=== PATIENT | female | born 1985 | race Caucasian/White ===

== ENCOUNTER 2018-09-04 12:34 | Emergency (ER) | payer OTHER ==
--- NOTE | 2018-09-04 13:58 | RAD REPORT ---
EXAM DESCRIPTION: CT - Head Brain Wo Cont - 09/04/2018 1:51 pm CLINICAL HISTORY: HEADACHE COMPARISON: No comparisons TECHNIQUE: All CT scans are performed using dose optimization technique as appropriate and may inclu de automated exposure control or mA/KV adjustment according to patient size. FINDINGS: No intracranial hemorrhage, hydrocephalus or extra-axial fluid collection.No areas of brai n edema or evidence of midline shift. The paranasal sinuses and mastoids are clear. The calvarium is intact. IMPRESSION: No acute intracranial abnormality.
[2018-09-04 14:28] LABS: Absolute Monocytes 0.4 K/uL (0.1-1.3); Absolute Neutrophil 5.1 K/uL (1.8-8.0); Basophils % 0.7 % (0-1.3); Hematocrit 46.1 % (36.0-45.0); Lymphocytes % 25.9 % (15.3-44.8); MCH 31.1 pg (27.0-35.0); MCV 90.7 fL (80-100); MPV 8.2 fL (7.6-11.3); Monocytes % 5.1 % (3.3-12.3); RBC Red Blood Cell Count 5.09 M/uL (3.86-4.86)
[2018-09-04 14:32] LABS: Protime INR 1.04
[2018-09-04 14:49] LABS: ALT/SGPT 65 U/L (12-78); AST/SGOT 35 U/L (15-37); Albumin 4.5 g/dL (3.4-5.0); Alkaline Phosphatase 115 U/L (45-117); BUN Blood Urea Nitrogen 13 mg/dL (7-18); Bicarbonate 28 mmol/L (21-32); Bilirubin Direct 0.3 mg/dL (0-0.2); Glucose Level 89 mg/dL (74-106); Magnesium 2.4 mg/dL (1.8-2.4); NT PRO-BNP 22 pg/mL (<125); Potassium 3.5 mmol/L (3.5-5.1); Protein, Total 8.7 g/dL (6.4-8.2); Sodium Level 138 mmol/L (136-145); Troponin (Emerg Dept Use Only) < 0.02 ng/mL (0.0-0.045)
[2018-09-04] MEDS ORDERED: cloNIDine HCl 0.1 MG TAB ONE (15:17)
[2018-09-04] MEDS ORDERED: NA CHLORIDE 0.9% 1,000 ML ONE (15:17)
--- NOTE | 2018-09-04 16:37 | EDPHYS ---
Physician Documentation [facility] Name: Rebekah Davila Age: 32 yrs Sex: Female : 1985 Arrival Date: 09/04/2018 Time: 12:36 Bed 13 Private MD: Michael Hebert ED Physician Mateo Menezes HPI: 09/04 16:32 This 32 yrs old Female presents to ER via Ambulatory with complaints of High kb Blood Pressure, Headache. 16:32 The patient has elevated blood pressure and discovered this at home, with a home kb device. Onset: The symptoms/episode began/occurred 3 day(s) ago. Associated signs and symptoms: Pertinent positives: headache, Pertinent negatives: chest pain, dizziness, dyspnea, lightheadedness, nausea, visual changes, vomiting, weakness. Severity of symptoms: At its worst the blood pressure was moderate, in the emergency department the blood pressure is unchanged. The patient has not experienced similar symptoms in the past. The patient has not recently seen a physician. 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 - Social history:: Smoking status: Patient/guardian denies using tobacco. - Ebola Screening: : Patient denies travel to an Ebola-affected area in the 21 days before illness onset. ROS: 16:32 Constitutional: Negative for fever, chills, and weight loss, Cardiovascular: Negative kb for chest pain, palpitations, and edema, Respiratory: Negative for shortness of breath, cough, wheezing, and pleuritic chest pain, Abdomen/GI: Negative for abdominal pain, nausea, vomiting, diarrhea, and constipation, Back: Negative for injury and pain, MS/Extremity: Negative for injury and deformity, Skin: Negative for injury, rash, and discoloration. 16:32 Neuro: Positive for headache. Exam: 16:32 Constitutional: This is a well developed, well nourished patient who is awake, alert, kb and in no acute distress. Head/Face: Normocephalic, atraumatic. Chest/axilla: Normal chest wall appearance and motion. Nontender with no deformity. No lesions are appreciated. Cardiovascular: Regular rate and rhythm with a normal S1 and S2. No gallops, murmurs, or rubs. Normal PMI, no JVD. No pulse deficits. Respiratory: Lungs have equal breath sounds bilaterally, clear to auscultation and percussion. No rales, rhonchi or wheezes noted. No increased work of breathing, no retractions or nasal flaring. Abdomen/GI: Soft, non-tender, with normal bowel sounds. No distension or tympany. No guarding or rebound. No evidence of tenderness throughout. Skin: Warm, dry with normal turgor. Normal color with no rashes, no lesions, and no evidence of cellulitis. MS/ Extremity: Pulses equal, no cyanosis. Neurovascular intact. Full, normal range of motion. Neuro: Awake and alert, GCS 15, oriented to person, place, time, and situation. Cranial nerves II-XII grossly intact. Motor strength 5/5 in all extremities. Sensory grossly intact. Cerebellar exam normal. Normal gait. Vital Signs: 13:00 BP 163 / 112; Pulse 105; Resp 20; Temp 98.5; Pulse Ox 99% on R/A; Weight 74.84 kg (R); aj1 Height 5 ft. 2 in. (157.48 cm) (R); Pain 7/10; 13:30 BP 149 / 97; Pulse 90; Resp 18; Pulse Ox 99% on R/A; ph 14:42 BP 132 / 103; Pulse 93; Resp 16; Pulse Ox 98% on R/A; ph 15:29 BP 141 / 107; Pulse 82; Resp 16; Pulse Ox 100% on R/A; ph 16:18 BP 130 / 87; Pulse 79; Resp 18; Pulse Ox 99% on R/A; ph 17:05 BP 116 / 74; Pulse 78; Resp 18; Temp 98.3; Pulse Ox 99% on R/A; ph 13:00 Body Mass Index 30.18 (74.84 kg, 157.48 cm) aj MDM: 13:23 Patient medically screened. kb 16:35 Data reviewed: vital signs, nurses notes. Data interpreted: Pulse oximetry: on room air kb is 99 %. Interpretation: normal. Counseling: I had a detailed discussion with the patient and/or guardian regarding: the historical points, exam findings, and any diagnostic results supporting the discharge/admit diagnosis, lab results, radiology results, the need for outpatient follow up, a family practitioner, to return to the emergency department if symptoms worsen or persist or if there are any questions or concerns that arise at home. ED course: Headache resolved once BP came down. Pt educated to keep blood pressure log and take to Dr Hebert for treatment of hypertension. . 09/04 13:29 Order name: Basic Metabolic Panel; Complete Time: 14:54 kb 09/04 13:29 Order name: CBC with Diff; Complete Time: 14:36 kb 09/04 13:29 Order name: LFT's; Complete Time: 14:54 kb 09/04 13:29 Order name: Magnesium; Complete Time: 14:54 kb 09/04 13:29 Order name: NT PRO-BNP; Complete Time: 14:54 kb 09/04 13:29 Order name: PT-INR; Complete Time: 14:54 kb 09/04 13:29 Order name: Troponin (emerg Dept Use Only); Complete Time: 14:54 kb 09/04 13:29 Order name: EKG; Complete Time: 13:30 kb 09/04 13:29 Order name: Cardiac monitoring; Complete Time: 16:20 kb 09/04 13:29 Order name: EKG - Nurse/Tech; Complete Time: 16:20 kb 09/04 13:29 Order name: IV Saline Lock; Complete Time: 16:20 kb 09/04 13:29 Order name: CT Head Brain wo Cont; Complete Time: 14:00 kb 09/04 13:29 Order name: Labs collected and sent; Complete Time: 16:20 kb 09/04 13:29 Order name: O2 Per Protocol; Complete Time: 16:20 kb 09/04 13:29 Order name: O2 Sat Monitoring; Complete Time: 16:20 kb 09/04 14:37 Order name: Recheck Vital Signs: every 30 minutes; Complete Time: 14:44 kb Administered Medications: 15:20 Drug: NS 0.9% 1000 ml Route: IV; Rate: 1000 ml; Site: left antecubital; ph 17:06 Follow up: Response: No adverse reaction; IV Status: Completed infusion ph 15:20 Drug: cloNIDine 0.1 mg Route: PO; ph 17:06 Follow up: Response: No adverse reaction; Blood pressure is lowered ph Disposition: 18:24 Co-signature as Attending Physician, Mateo Menezes MD. Disposition: 09/04/18 16:37 Discharged to Home. Impression: Essential (primary) hypertension. - Condition is Stable. - Discharge Instructions: Hypertension, [id number]. - Medication Reconciliation Form, Thank You Letter, Antibiotic Education, Prescription Opioid Use, Work release form form. - Follow up: Emergency Department; When: As needed; Reason: Worsening of condition. Follow up: Michael Hebert; When: 2 - 3 days; Reason: Recheck today's complaints, Continuance of care, Re-evaluation by your physician. Signatures: Dispatcher [employer] EDMS Kalina Davila, FARM MACHINERY ERECTOR-C FARM MACHINERY ERECTOR-Ckb Racquel Goff RN RN aj1 Isabell Solitario RN RN ph Riri, MD IZABELA Galindo Corrections: (The following items were deleted from the chart) 17:07 16:37 09/04/2018 16:37 Discharged to Home. Impression: Essential (primary) ph hypertension. Condition is Stable. Forms are Medication Reconciliation Form, Thank You Letter, Antibiotic Education, Prescription Opioid Use. Follow up: Emergency Department; When: As needed; Reason: Worsening of condition. Follow up: Michael Hebert; When: 2 - 3 days; Reason: Recheck today's complaints, Continuance of care, Re-evaluation by your physician. kb
--- NOTE | 2018-09-04 16:37 | ER ---
Nurse's Notes [facility] Name: Rebekah Davila Age: 32 yrs Sex: Female : 1985 Arrival Date: 09/04/2018 Time: 12:36 Bed 13 Private MD: Michael Hebert Diagnosis: Essential (primary) hypertension Presentation: 09/04 12:58 Presenting complaint: Patient states: I've been having a severe headache for a few days aj1 last night. Today my headache was worse so I went to the school nurse and when she checked it it was 190/105, so she told me to come to the emergency room.". Transition of care: patient was not received from another setting of care. Onset of symptoms was September 04, 2018 at 12:00. Risk Assessment: Do you want to hurt yourself or someone else? Patient reports no desire to harm self or others. Initial Sepsis Screen: Does the patient meet any 2 criteria? HR > 90 bpm. No. Patient's initial sepsis screen is negative. Does the patient have a suspected source of infection? No. Patient's initial sepsis screen is negative. Care prior to arrival: None. 12:58 Method Of Arrival: Ambulatory aj 12:58 Acuity: NAWAF 3 aj1 Triage Assessment: 13:00 Headache History: The patient has had previous headaches and this one is similar to aj1 previous episodes. General: Appears in no apparent distress. uncomfortable, Behavior is calm, cooperative, appropriate for age. Pain: Complains of pain in right eye and left eye Pain currently is 7 out of 10 on a pain scale. Pain began 1 hour ago. Also complains of nausea. Neuro: Level of Consciousness is awake, alert, obeys commands, Oriented to person, place, time, situation. Cardiovascular: Patient's skin is warm and dry. Respiratory: Airway is patent Respiratory effort is even, unlabored, Respiratory pattern is regular, symmetrical. 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 - Social history:: Smoking status: Patient/guardian denies using tobacco. - Ebola Screening: : Patient denies travel to an Ebola-affected area in the 21 days before illness onset. Screenin:42 Abuse screen: Denies threats or abuse. Denies injuries from another. Nutritional ph screening: No deficits noted. Tuberculosis screening: Fall Risk None identified. Assessment: 13:30 General: Appears in no apparent distress. comfortable, Behavior is calm, cooperative, ph appropriate for age, Denies fever, feeling ill. Pain: Complains of pain in head. Neuro: Level of Consciousness is awake, alert, obeys commands, Oriented to person, place, time, situation, Reports blurred vision dizziness, headache frontal area, paresthesias in right cheek, right ear and right adventism. Cardiovascular: Reports lightheadedness, Denies chest pain, nausea, shortness of breath, vomiting, Capillary refill < 3 seconds in bilateral fingers Patient's skin is warm and dry. Respiratory: Airway is patent Respiratory effort is even, unlabored. GI: No signs and/or symptoms were reported involving the gastrointestinal system. Derm: Skin is intact, is healthy with good turgor, Skin is pink, warm \\T\\ dry. Musculoskeletal: Circulation, motion, and sensation intact. Range of motion: intact in all extremities. 15:00 Reassessment: Patient appears in no apparent distress at this time. Patient and/or ph family updated on plan of care and expected duration. Pain level reassessed. Patient is alert, oriented x 3, equal unlabored respirations, skin warm/dry/pink. 16:18 Reassessment: Patient appears in no apparent distress at this time. Patient and/or ph family updated on plan of care and expected duration. Pain level reassessed. Patient is alert, oriented x 3, equal unlabored respirations, skin warm/dry/pink. Pt sitting up in bed eating sandwich, tolerating well, BP decreased to 130/87, pt states, " My headache is starting to go away too." Family at bedside. 17:04 Reassessment: Patient appears in no apparent distress at this time. Patient and/or ph family updated on plan of care and expected duration. Pain level reassessed. Patient is alert, oriented x 3, equal unlabored respirations, skin warm/dry/pink. Pt instructed to follow-up w/ PCP and d/c home. Vital Signs: 13:00 BP 163 / 112; Pulse 105; Resp 20; Temp 98.5; Pulse Ox 99% on R/A; Weight 74.84 kg (R); aj1 Height 5 ft. 2 in. (157.48 cm) (R); Pain 7/10; 13:30 BP 149 / 97; Pulse 90; Resp 18; Pulse Ox 99% on R/A; ph 14:42 BP 132 / 103; Pulse 93; Resp 16; Pulse Ox 98% on R/A; ph 15:29 BP 141 / 107; Pulse 82; Resp 16; Pulse Ox 100% on R/A; ph 16:18 BP 130 / 87; Pulse 79; Resp 18; Pulse Ox 99% on R/A; ph 17:05 BP 116 / 74; Pulse 78; Resp 18; Temp 98.3; Pulse Ox 99% on R/A; ph 13:00 Body Mass Index 30.18 (74.84 kg, 157.48 cm) aj1 ED Course: 12:36 Patient arrived in ED. as 12:36 Michael Hebert is Private Physician. as 12:59 Triage completed. aj1 13:00 Arm band placed on Patient placed in waiting room, Patient notified of wait time. aj1 13:19 Isabell Solitario, RN is Primary Nurse. ph 13:23 [facility]C [facility]. kb 13:23 Mateo Menezes MD is Attending Physician. kb 13:23 Patient has correct armband on for positive identification. Bed in low position. Call ph light in reach. Side rails up X 1. Pulse ox on. NIBP on. Warm blanket given. 13:[address] via wheelchair. kw1 13:51 CT Head Brain wo Cont In Process Unspecified. EDMS 14:00 CT completed. Patient tolerated procedure well. Patient moved back from CT. kw1 14:09 EKG done, by technical support internship. reviewed by Kalina SONG. sm3 14:42 Initial lab(s) drawn, by me, sent to lab. Missed attempt(s): 22 gauge in right ph antecubital area. Bleeding controlled, band aid applied, catheter tip intact. 15:04 Inserted saline lock: 20 gauge in left antecubital area, using aseptic technique. sv Flushed left antecubital with 5 ml normal saline. 16:36 Michael Hebert is Referral Physician. kb 17:05 No provider procedures requiring assistance completed. IV discontinued, intact, ph bleeding controlled, No redness/swelling at site. Pressure dressing applied. Administered Medications: 15:20 Drug: NS 0.9% 1000 ml Route: IV; Rate: 1000 ml; Site: left antecubital; ph 17:06 Follow up: Response: No adverse reaction; IV Status: Completed infusion ph 15:20 Drug: cloNIDine 0.1 mg Route: PO; ph 17:06 Follow up: Response: No adverse reaction; Blood pressure is lowered ph Outcome: 16:37 Discharge ordered by MD. kb 17:07 Patient left the ED. ph 17:07 Discharged to home ambulatory, with family. ph 17:07 Condition: improved 17:07 Discharge instructions given to patient, Instructed on discharge instructions, follow up and referral plans. Demonstrated understanding of instructions, follow-up care. Signatures: Dispatcher [employer] EDKalina Daniels, QUALITATIVE RESEARCHER-C QUALITATIVE RESEARCHER-CkRacquel Chávez RN RN aj1 Meera Reveles RN RN sv Martinez, Amelia as Hall, Patricia, RN RN Danyelle Jimenez 1 Ginger Live 3
--- NOTE | 2018-09-04 17:38 | EKG ---
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
== END 2018-09-04 17:07 | disposition home or self-care (01) ==
LOC: ER 12:34
DX: I10 Essential (primary) hypertension (principal); E03.9 Hypothyroidism, unspecified
CPT/HCPCS: 36415; 70450; 80048; 80076; 83735; 83880; 84484; 85025; 85610; 93005; 96360; 96361; 99284; J7030

== ENCOUNTER 2018-09-05 17:57 | Emergency (ER) | payer OTHER ==
[2018-09-05] MEDS ORDERED: METOCLOPRAMIDE 10 MG/2mL INJ ONE ×2 (20:43)
[2018-09-05] MEDS ORDERED: ONDANSETRON 4 MG/2 ML VIAL ONE (20:44)
[2018-09-05] MEDS ORDERED: NA CHLORIDE 0.9% 100 ML IV ONE (20:45)
[2018-09-05 20:46] LABS: Absolute Lymphocytes (CBC) 1.7 K/uL (0.7-4.9); Absolute Monocytes 0.5 K/uL (0.1-1.3); Absolute Neutrophil 8.6 K/uL (1.8-8.0); Basophils % 0.3 % (0-1.3); Eosinophils % 0.6 % (0-4.4); Hematocrit 43.5 % (36.0-45.0); Lymphocytes % 15.9 % (15.3-44.8); MCV 91.6 fL (80-100); MPV 8.3 fL (7.6-11.3); Monocytes % 4.4 % (3.3-12.3); RBC Red Blood Cell Count 4.75 M/uL (3.86-4.86)
[2018-09-05] MEDS ORDERED: DEXAMETHASONE 10 MG/ML VIAL ONE (20:48)
[2018-09-05 20:53] LABS: Potassium 3.8 mmol/L (3.5-5.1)
[2018-09-05 21:12] LABS: Urine Blood NEGATIVE (NEG); Urine Glucose NEGATIVE (NEG); Urine Protein NEGATIVE (NEG)
--- NOTE | 2018-09-05 21:24 | RAD REPORT ---
EXAM DESCRIPTION: CT - Head angio - 09/05/2018 9:09 pm CLINICAL HISTORY: Headache TECHNIQUE: Axial 5 millimeter thick imaging of the head was performed. During dynamic enhancement us ing nonionic IV contrast,, axial 1 millimeter thick images of the head were obtained. Sagittal and co leia reformatted images were generated and reviewed. All CT scans are performed using dose optimization technique as appropriate and may include automated exposure control or mA/KV adjustment according to patient size. COMPARISON: CT head September 04 FINDINGS: No intracranial hemorrhage. No mass, edema or other acute intracranial finding. No new br ain parenchymal finding since September 04. Contrast imaging shows no aneurysm or vascular malformation. No vasculitis or other diffuse vascular process seen. No named branch occlusion identifiable. Major venous sinuses are patent. IMPRESSION: CT angio head examination shows no significant or suspicious finding.
--- NOTE | 2018-09-05 21:27 | RAD REPORT ---
EXAM DESCRIPTION: CT - Neck Angio - 09/05/2018 9:11 pm CLINICAL HISTORY: Headache, neck pain TECHNIQUE: During dynamic enhancement using nonionic IV contrast, axial 2 millimeter thick images we re obtained. Sagittal and coronal reformatted images were generated and reviewed. All CT scans are performed using dose optimization technique as appropriate and may include automated exposure control or mA/KV adjustment according to patient size. COMPARISON: None FINDINGS: Aortic arch is 3 vessel. No origin stenoses identified. No vertebral artery origins steno sis. Vertebral arteries are codominant. No dissection, stenosis or significant finding. Basilar artery is unremarkable. Bilateral common carotid artery show no suspicious findings. Internal and external mckeon tid artery's without suspicious finding. No dissection. No vasculitis findings. No jugular vein abnor mality. No suspicious soft tissue neck finding. Postsurgical changes are noted at the C5-6 disc level. Prominent posterior endplate spurring changes are present. IMPRESSION: CT angio neck imaging shows no vascular abnormalities. No suspicious soft tissue mass identifiable. 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 This is a surgically fused level.
[2018-09-05] MEDS ORDERED: NA CHLORIDE 0.9% 2,000 ML ONE (22:56)
[2018-09-05 23:05] LABS: CSF Glucose 62 mg/dL (40-70)
[2018-09-05 23:35] LABS: Appearance CLEAR (CLEAR); Body Fluid Source CSF; Color of fluid Colorless (COLORLESS); Fluid Total Volume 5 ml
[2018-09-05 23:36] LABS: Body Fluid WBC 0 /mm^3
[2018-09-05 23:40] LABS: Appearance CLEAR (CLEAR); Body Fluid Source CSF; Body Fluid WBC 0 /mm^3; Color of fluid Colorless (COLORLESS)
--- NOTE | 2018-09-06 00:11 | ER ---
Nurse's Notes [facility] Name: Rebekah Davila Age: 32 yrs Sex: Female : 1985 Arrival Date: 09/05/2018 Time: 18:00 Bed 6 Private MD: Michael Hebert Diagnosis: Headache;Elevated blood-pressure reading, without diagnosis of hypertension Presentation: 09/05 18:00 Presenting complaint: Patient states: HTN, headache is worse today, c/o vomiting. Was sv seen here yesterday. Transition of care: patient was not received from another setting of care. Onset of symptoms was September 05, 2018. Care prior to arrival: None. 18:00 Method Of Arrival: Ambulatory sv 18:00 Acuity: NAWAF 3 sv 21:37 Risk Assessment: Do you want to hurt yourself or someone else? Patient reports no tl2 desire to harm self or others. Initial Sepsis Screen: Does the patient meet any 2 criteria? No. Patient's initial sepsis screen is negative. Does the patient have a suspected source of infection? No. Patient's initial sepsis screen is negative. Triage Assessment: 18:00 General: Appears uncomfortable, Behavior is calm, cooperative, appropriate for age. sv Pain: Complains of pain in face Pain currently is 9 out of 10 on a pain scale. Neuro: Level of Consciousness is awake, alert, obeys commands, Oriented to person, place, time, situation, Moves all extremities. Full function Gait is steady, Speech is normal. Neuro: Reports headache photophobia. Respiratory: Respiratory effort is even, unlabored, Respiratory pattern is regular, symmetrical. Derm: Skin is pink, warm \T\ dry. 21:37 Pain: Also complains of. tl2 Historical: - Allergies: 18:01 No Known Allergies; sv - Home Meds: 21:38 [employer] [place] Thyroid Oral [Active]; tl2 - PMHx: 18:01 Hypothyroidism; sv - PSHx: 18:01 neck surgery; Cholecystectomy; sv - Immunization history:: Adult Immunizations up to date. - Ebola Screening: : No symptoms or risks identified at this time. - Social history:: Smoking status: unknown. Screenin:36 Abuse screen: Denies threats or abuse. Nutritional screening: No deficits noted. tl2 Tuberculosis screening: No symptoms or risk factors identified. Fall Risk None identified. Assessment: 19:50 General: Appears in no apparent distress. uncomfortable, Behavior is calm, cooperative, tl2 appropriate for age. Pain: Complains of pain in headache. Neuro: Level of Consciousness is awake, alert, obeys commands, Oriented to person, place, time, situation. Cardiovascular: Denies chest pain. Respiratory: Airway is patent Respiratory effort is even, unlabored, Respiratory pattern is regular, symmetrical. GI: No signs and/or symptoms were reported involving the gastrointestinal system. Derm: Skin is pink, warm \T\ dry. 21:36 Reassessment: Patient appears in no apparent distress at this time. Patient and/or tl2 family updated on plan of care and expected duration. Pain level reassessed. Patient is alert, oriented x 3, equal unlabored respirations, skin warm/dry/pink. Pt states headache pain is improving Patient states feeling better. 22:30 Reassessment: Patient appears in no apparent distress at this time. Patient and/or tl2 family updated on plan of care and expected duration. Pain level reassessed. Patient is alert, oriented x 3, equal unlabored respirations, skin warm/dry/pink. Patient states feeling better. 09/06 00:25 Reassessment: Patient appears in no apparent distress at this time. Patient and/or tl2 family updated on plan of care and expected duration. Pain level reassessed. Patient is alert, oriented x 3, equal unlabored respirations, skin warm/dry/pink. pt verbalized understanding of discharge instructions, need for follow up and prescription usage Patient states feeling better. Vital Signs: 09/05 18:01 BP 155 / 114; Pulse 89; Resp 19; Temp 98.3; Pulse Ox 98% ; Weight 74.84 kg; Height 5 sv ft. 2 in. (157.48 cm); Pain 9/10; 19:54 BP 166 / 111; Pulse 95; Resp 18; Pulse Ox 99% on R/A; mt 21:38 BP 126 / 85; Pulse 72; Resp 18; Pulse Ox 97% ; Pain 6/10; tl2 22:27 BP 113 / 77; Pulse 79; Resp 18; Pulse Ox 99% on R/A; mt 23:33 BP 119 / 80; Pulse 70; Resp 18; Pulse Ox 95% on R/A; tl2 18:01 Body Mass Index 30.18 (74.84 kg, 157.48 cm) sv ED Course: 18:00 Patient arrived in ED. as 18:00 Michael Hebert is Private Physician. as 18:01 Triage completed. sv 18:03 Arm band placed on. sv 19:51 Topher Sepulveda PA is PHCP. cp 19:51 Topher Prater MD is Attending Physician. cp 20:25 Inserted saline lock: 20 gauge in left antecubital area, using aseptic technique. Blood mt collected. 21:10 Head angio In Process Unspecified. EDMS 21:11 CT completed. Patient tolerated procedure well. Patient moved back from CT. nj 21:11 Neck Angio In Process Unspecified. EDMS 21:31 Barbara Avilez, JHON is Primary Nurse. tl2 21:36 Patient has correct armband on for positive identification. Bed in low position. Call tl2 light in reach. Side rails up X 1. Adult w/ patient. 22:11 Consent for a lumbar puncture explained by staff, explained by physician, signed by tl2 patient. 23:30 Assist provider with lumbar puncture: Set up LP tray. Performed by Topher FELIX CSF is tl2 clear. Sample collected. Sample sent to lab. Puncture site dressed with band aid, Procedure was successful. Patient tolerated well. 09/06 00:10 Kevin Arvizu MD is Referral Physician. cp 00:27 IV discontinued, intact, bleeding controlled, No redness/swelling at site. Pressure tl2 dressing applied. Administered Medications: 09/05 20:50 Drug: Reglan 20 mg Route: IVP; Site: left antecubital; tl2 21:34 Follow up: Response: No adverse reaction tl2 20:50 Drug: Zofran 4 mg Route: IVP; Site: left antecubital; tl2 09/06 00:31 Follow up: Response: No adverse reaction; Marked relief of symptoms tl1 09/05 21:34 Drug: Decadron - Dexamethasone 10 mg Route: IVP; Site: left antecubital; tl2 09/06 00:32 Follow up: Response: No adverse reaction; Marked relief of symptoms; Pain is decreased tl1 09/05 22:55 Drug: NS 0.9% 1000 ml Route: IV; Rate: 1 bolus; Site: left antecubital; tl1 09/06 00:31 Follow up: IV Status: Completed infusion tl1 09/05 22:56 Drug: NS 0.9% 1000 ml Route: IV; Rate: 1 bolus; Site: left antecubital; tl1 09/06 00:31 Follow up: IV Status: Completed infusion tl1 Outcome: 00:11 Discharge ordered by . renetta 00:27 Discharged to home ambulatory, with family. tl2 00:27 Condition: stable 00:27 Discharge instructions given to patient, Instructed on discharge instructions, follow up and referral plans. Demonstrated understanding of instructions, follow-up care, medications, Prescriptions given X 4. 00:54 Patient left the ED. tl2 Signatures: Dispatcher [employer] EDMS Meera Reveles RN RN Aishwarya Drake Tonya, RN RN tl1 Topher Sepulveda PA PA cp Knox, Taylor, RN RN tl2 Geovanni Barajas, [facility]
--- NOTE | 2018-09-06 00:11 | EDPHYS ---
Physician Documentation [facility] Name: Rebekah Davila Age: 32 yrs Sex: Female : 1985 Arrival Date: 09/05/2018 Time: 18:00 Bed 6 Private MD: Michael Hebert ED Physician Topher Prater HPI: 09/05 20:10 This 32 yrs old Female presents to ER via Ambulatory with complaints of High cp Blood Pressure, Headache. 20:10 The patient complains of pain to the top of head and forehead. The patient describes cp the headache as aching, constant. 20:10 Onset: The symptoms/episode began/occurred gradually, and became worse today. cp Associated signs and symptoms: Pertinent positives: nausea, Photophobia. Headache History: Denies prior headaches. The patient has been recently seen at the [facility] Emergency Department, yesterday, for similar complaints labs were performed, CT scan was performed. Patient reports headache worse today. Historical: - Allergies: 18:01 No Known Allergies; sv - Home Meds: 21:38 [place] Thyroid Oral [Active]; tl2 - PMHx: 18:01 Hypothyroidism; sv - PSHx: 18:01 neck surgery; Cholecystectomy; sv - Immunization history:: Adult Immunizations up to date. - Ebola Screening: : No symptoms or risks identified at this time. - Social history:: Smoking status: unknown. ROS: 20:15 Constitutional: Negative for body aches, chills, fever, poor PO intake. cp 20:15 Eyes: Negative for injury, pain, redness, and discharge. cp 20:15 ENT: Negative for drainage from ear(s), ear pain, sore throat, difficulty swallowing, difficulty handling secretions. 20:15 Cardiovascular: Negative for chest pain, edema, palpitations. 20:15 Respiratory: Negative for cough, shortness of breath, wheezing. 20:15 Abdomen/GI: Positive for nausea, Negative for abdominal pain, vomiting, diarrhea, constipation, black/tarry stool, rectal bleeding. 20:15 : Negative for urinary symptoms. 20:15 Skin: Negative for cellulitis, rash. 20:15 Neuro: Positive for headache, Negative for altered mental status, loss of consciousness, syncope, near syncope, weakness. 20:15 All other systems are negative. Exam: 20:20 Constitutional: The patient appears in no acute distress, alert, awake, non-toxic, well cp developed, well nourished, uncomfortable. 20:20 Head/Face: Normocephalic, atraumatic. Eyes: Pupils equal round and reactive to light, cp extra-ocular motions intact. Lids and lashes normal. Conjunctiva and sclera are non-icteric and not injected. Cornea within normal limits. Periorbital areas with no swelling, redness, or edema. ENT: Nares patent. No nasal discharge, no septal abnormalities noted. Tympanic membranes are normal and external auditory canals are clear. Oropharynx with no redness, swelling, or masses, exudates, or evidence of obstruction, uvula midline. Mucous membranes moist. Neck: Trachea midline, no thyromegaly or masses palpated, and no cervical lymphadenopathy. Supple, full range of motion without nuchal rigidity, or vertebral point tenderness. No Meningismus. Chest/axilla: Normal chest wall appearance and motion. Nontender with no deformity. No lesions are appreciated. Cardiovascular: Regular rate and rhythm with a normal S1 and S2. No gallops, murmurs, or rubs. Normal PMI, no JVD. No pulse deficits. Respiratory: Lungs have equal breath sounds bilaterally, clear to auscultation and percussion. No rales, rhonchi or wheezes noted. No increased work of breathing, no retractions or nasal flaring. Abdomen/GI: Soft, non-tender, with normal bowel sounds. No distension or tympany. No guarding or rebound. No evidence of tenderness throughout. Skin: Warm, dry with normal turgor. Normal color with no rashes, no lesions, and no evidence of cellulitis. Neuro: Awake and alert, GCS 15, oriented to person, place, time, and situation. Cranial nerves II-XII grossly intact. Motor strength 5/5 in all extremities. Sensory grossly intact. Cerebellar exam normal. Normal gait. Vital Signs: 18:01 BP 155 / 114; Pulse 89; Resp 19; Temp 98.3; Pulse Ox 98% ; Weight 74.84 kg; Height 5 sv ft. 2 in. (157.48 cm); Pain 9/10; 19:54 BP 166 / 111; Pulse 95; Resp 18; Pulse Ox 99% on R/A; mt 21:38 BP 126 / 85; Pulse 72; Resp 18; Pulse Ox 97% ; Pain 6/10; tl2 22:27 BP 113 / 77; Pulse 79; Resp 18; Pulse Ox 99% on R/A; mt 23:33 BP 119 / 80; Pulse 70; Resp 18; Pulse Ox 95% on R/A; tl2 18:01 Body Mass Index 30.18 (74.84 kg, 157.48 cm) sv Procedures: 23:20 Lumbar Puncture: Patient placed in left lateral decubitus position. Prepped with Betadine. Draped using sterile technique. Collected 4 ml's of clear fluid. Sample sent to lab. Puncture site dressed with band aid, Patient tolerated well. MDM: 19:51 Patient medically screened. cp 21:00 Differential diagnosis: cerebral vascular accident, hypoglycemia, hyponatremia, cp meningitis, meningoencephalitis, migraine, otitis, sinusitis, subarachnoid bleed, subdural hematoma, tension headache. 09/06 00:10 Data reviewed: vital signs, nurses notes, lab test result(s), radiologic studies, CT cp scan. 00:10 Counseling: I had a detailed discussion with the patient and/or guardian regarding: the cp historical points, exam findings, and any diagnostic results supporting the discharge/admit diagnosis, the presence of at least one elevated blood pressure reading (>120/80) during this emergency department visit, lab results, the need for outpatient follow up, a family practitioner, a neurologist, to return to the emergency department if symptoms worsen or persist or if there are any questions or concerns that arise at home. Response to treatment: the patient's symptoms have markedly improved after treatment, VSS. Patient reports headache markedly improved, and as a result, I will discharge patient. 09/05 20:08 Order name: BMP; Complete Time: 21:30 cp 09/05 21:30 Interpretation: GLUC 121; GFR 57. cp 09/05 20:08 Order name: CBC with Diff; Complete Time: 21:30 cp 09/05 23:53 Interpretation: Normal except: WBC 10.9; HGB 15.2; RAQUEL% 78.8; NEUT A 8.6. cp 09/05 20:08 Order name: PT-INR; Complete Time: 21:30 cp 09/05 20:08 Order name: Ptt, Activated; Complete Time: 21:30 cp 09/05 20:59 Order name: Urine Dipstick--Ancillary (enter results); Complete Time: 21:30 [facility] 09/05 21:03 Order name: Urine --Ancillary (enter results) [facility] 09/05 20:35 Order name: Head angio; Complete Time: 21:30 [facility] 09/05 20:35 Order name: Neck Angio; Complete Time: 21:30 [facility] 09/05 21:04 Order name: Urine --Ancillary; Complete Time: 21:30 [facility] 09/05 21:43 Order name: Spinal Fluid Profile; Complete Time: 23:52 cp 09/05 22:52 Order name: CSF Culture [facility] 09/05 22:52 Order name: CSF Bacterial Antigens (Tube 1 [facility] 09/05 22:52 Order name: Body Fluid Cell Count; Complete Time: 23:52 [facility] 09/05 20:08 Order name: Urine Dipstick-Ancillary (obtain specimen); Complete Time: 20:50 cp 09/05 20:08 Order name: Urine Test (obtain specimen); Complete Time: 20:50 cp 09/05 20:08 Order name: IV; Complete Time: 20:22 cp 09/05 20:08 Order name: EKG; Complete Time: 20:09 cp 09/05 20:08 Order name: EKG - Nurse/Tech; Complete Time: 20:25 cp 09/05 21:43 Order name: Lumbar Puncture Setup; Complete Time: 22:55 cp Administered Medications: 09/05 20:50 Drug: Reglan 20 mg Route: IVP; Site: left antecubital; tl2 21:34 Follow up: Response: No adverse reaction tl2 20:50 Drug: Zofran 4 mg Route: IVP; Site: left antecubital; tl2 09/06 00:31 Follow up: Response: No adverse reaction; Marked relief of symptoms tl1 09/05 21:34 Drug: Decadron - Dexamethasone 10 mg Route: IVP; Site: left antecubital; tl2 09/06 00:32 Follow up: Response: No adverse reaction; Marked relief of symptoms; Pain is decreased tl09/05 22:55 Drug: NS 0.9% 1000 ml Route: IV; Rate: 1 bolus; Site: left antecubital; tl1 09/06 00:31 Follow up: IV Status: Completed infusion tl09/05 22:56 Drug: NS 0.9% 1000 ml Route: IV; Rate: 1 bolus; Site: left antecubital; tl1 09/06 00:31 Follow up: IV Status: Completed infusion tl1 Disposition: 09:41 Co-signature as Attending Physician, Topher Prater MD I agree with the assessment and jennifer plan of care. Disposition: 09/06/18 00:11 Discharged to Home. Impression: Headache, Elevated blood-pressure reading, without diagnosis of hypertension. - Condition is Stable. - Discharge Instructions: General Headache Without Cause, Migraine Headache, How to Take Your Blood Pressure, [id number]. - Prescriptions for Fiorinal 50- 325-40 mg Oral Capsule - take 1 capsule by ORAL route every 4 hours As needed - not to exceed 6 capsules per day; 20 capsule. Naprosyn 500 mg Oral Tablet - take 1 tablet by ORAL route 2 times per day take with food; 30 tablet. Phenergan 25 mg Rectal Suppository - insert 1 suppository by RECTAL route every 6 hours As needed; 12 suppository. promethazine 25 mg Oral Tablet - take 1 tablet by ORAL route every 6 hours As needed; 20 tablet. - Medication Reconciliation Form, Thank You Letter, Antibiotic Education, Prescription Opioid Use form. - Follow up: Kevin Arvizu MD; When: 2 - 3 days; Reason: Recheck today's complaints. - Problem is an ongoing problem. - Symptoms have improved. Signatures: Dispatcher [employer] EDMeera Wolf RN RN sv Anderson, Corey, MD MD cha Lasagna, Tonya, RN RN tl1 Topher Sepulveda PA PA cp Knox, Taylor, RN RN tl2 Corrections: (The following items were deleted from the chart) 09/05 23:53 23:53 Normal except: WBC 10.9; HGB 15.2. cp cp 09/06 00:54 00:11 09/06/2018 00:11 Discharged to Home. Impression: Headache; Elevated tl2 blood-pressure reading, without diagnosis of hypertension. Condition is Stable. Forms are Medication Reconciliation Form, Thank You Letter, Antibiotic Education, Prescription Opioid Use. Follow up: Kevin Arvizu; When: 2 - 3 days; Reason: Recheck today's complaints. Problem is an ongoing problem. Symptoms have improved. cp
--- NOTE | 2018-09-06 08:13 | EKG ---
Test Date: 2018-09-05 Test Time: 20:13:21 Printed Circuit Board Designer: YULIANA MEASUREMENT RESULTS: Intervals: Rate: 77 MA: 156 QRSD: 92 QT: 372 QTc: 420 [place]: P: 50 MA: 156 QRS: 70 T: 71 INTERPRETIVE STATEMENTS: Normal sinus rhythm Possible Left atrial enlargement Borderline ECG Compared to ECG 09/04/2018 14:04:57 No significant changes Electronically Signed On 09-06-18 08:12:18 CDT by Bony New
== END 2018-09-06 00:54 | disposition home or self-care (01) ==
LOC: ER 17:57
PROC: 009U3ZX Drainage of Spinal Canal, Percutaneous Approach, Diagnostic (ICD-10-PCS; principal; 2018-09-06)
DX: R03.0 Elevated blood-pressure reading, without diagnosis of hypertension (principal); E03.9 Hypothyroidism, unspecified
CPT/HCPCS: 36415; 62270; 70496; 70498; 80048; 81003; 81025; 82945; 84157; 85025; 85610; 85730; 86403; 87070; 89050; 93005; 96361; 96374; 96375; 99285; J1100; J2405; J2765; J7030; Q9967

== ENCOUNTER 2019-03-27 09:48 | Day surgery (SDC) | payer OTHER ==
[2019-03-24 11:46] LABS: Absolute Lymphocytes (CBC) 2.2 K/uL (0.7-4.9); Absolute Monocytes 0.3 K/uL (0.1-1.3); Absolute Neutrophil 5.2 K/uL (1.8-8.0); Basophils % 0.4 % (0-1.3); Eosinophils % 1.7 % (0-4.4); Lymphocytes % 28.6 % (15.3-44.8); MPV 8.5 fL (7.6-11.3); Monocytes % 3.7 % (3.3-12.3); RBC Red Blood Cell Count 5.05 M/uL (3.86-4.86)
[2019-03-24 11:48] LABS: Urine Appearance CLOUDY; Urine Bilirubin NEGATIVE (NEG); Urine Blood 3+ (NEG); Urine Color YELLOW; Urine Glucose NEGATIVE (NEG); Urine Protein NEGATIVE (NEG); Urine Specific Gravity 1.015 (1.005-1.030); Urine Urobilinogen 0.2 mg/dL (0.2-1.0)
[2019-03-24 11:53] LABS: Urine Microscopic Reflex ORDER UMIC
[2019-03-24 11:56] LABS: Urine Bacteria <20 /HPF (<20); Urine Culture Reflex Order NOT NEEDED; Urine Mucus LIGHT /HPF (NONE SEEN); Urine RBC >50 /HPF (NONE SEEN)
[2019-03-27] MEDS ORDERED: Ringers Lactate 1,000 ML IV ONE ×2 (10:17→13:28)
[2019-03-27] MEDS ORDERED: SCOPOLAMINE HYDROBROMIDE PATCH TD ONE (10:17)
[2019-03-27] MEDS ORDERED: PROPOFOL 200 MG/20 ML VIAL IV ONE (11:25)
[2019-03-27] MEDS ORDERED: GLYCOPYRROLATE 0.2 MG/ML SYR ONE (11:26)
[2019-03-27] MEDS ORDERED: ROCURONIUM 50 MG/5 ML VIAL IV ONE (11:26)
[2019-03-27] MEDS ORDERED: LIDOCAINE 2% MPF 5 ML VIAL ONE (11:27)
[2019-03-27] MEDS ORDERED: FENTANYL CITR 250 MCG/5 ML ONE (11:28)
[2019-03-27] MEDS ORDERED: MIDAZOLAM HCL 2 MG/2 ML INJ ONE (11:28)
[2019-03-27] MEDS ORDERED: ONDANSETRON 4 MG/2 ML VIAL ONE (11:28)
[2019-03-27] MEDS ORDERED: DEXAMETHASONE 10 MG/ML VIAL ONE (11:29)
[2019-03-27] MEDS ORDERED: NEOSTIGMINE 1 MG/ML -10 ML VIAL ONE (13:00)
[2019-03-27] MEDS ORDERED: KETOROLAC 30 MG/ML INJ ONE (13:25)
[2019-03-27] MEDS ORDERED: HYDRALAZINE HCL 20 MG/ML VIAL ONE (13:26)
[2019-03-27] MEDS: HYDROMORPHONE HCL 1 MG/ML INJ ONE ×2 (14:04→14:09)
[2019-03-27] MEDS ORDERED: IBUPROFEN 200 MG TAB PO ONE (14:47)
[2019-03-27] MEDS ORDERED: IBUPROFEN 400 MG TAB ONE (14:47)
--- NOTE | 2019-03-28 00:01 | OP ---
Date of Procedure: 03/27/2019 Surgeon: Terri Packer MD Solar Sales Representative: Juani Harden. Preoperative Diagnoses: Menorrhagia, leiomyomata, dysmenorrhea, deep dyspareunia. Postoperative Diagnoses: Menorrhagia, leiomyomata, dysmenorrhea, deep dyspareunia, endometriosis, sood bserosal leiomyoma. Procedures Performed: 1.Diagnostic hysteroscopy. 2.Diagnostic laparoscopy. 3.Bilateral salpingectomy. 4.Endometriosis excision from the right pararectal space. 5.Right pararectal nodule excised all the way down to the pelvic floor. 6.Subserosal myomectomy x1. Anesthesia: General endotracheal. Estimated Blood Loss: Minimal. Specimens: Bilateral tubes, myoma, and right pararectal nodule. Complications: No complications. Drains: No drains. Condition: Stable. Findings: Right pararectal nodule was seen between the uterosacral ligament and the paracolic gutter in the pararectal space. The nodule was deep and all the way down to the pelvic floor muscles, righ t on the rectal wall, however not involving the rectal muscularis or serosa. Completely intact recta l wall. Tubes unremarkable, removed due to her complaints of dysmenorrhea with no other findings of endometri osis. Indications: The patient is a 33-year-old female with heavy bleeding, dysmenorrhea, dyspareunia, tripp oing for many years. She has not seen any cd technician in about 7-8 years. Transvaginal ultrasound was performed. Endometrium needed sampling. Endometrial biopsy was done in the office and negative for atypia or malignancy. No future desire for kids and child fertility completed for this patient. After understanding the degree of pain that this patient had, we discussed about the options of endo metriosis excision versus medical treatment alone. The patient also completed childbearing and would like to have fertility completion. She has a strong family history of ovarian and breast cancer as well, so oral contraceptive pills relatively contraindicated in this patient with a very strong famil y history, so endometrium was sampled and was negative for atypia or malignancy. The plan was 1.To perform a hysteroscopy to rule out any uterine anomalies. 2.To remove the endometriosis by laparoscopy and then proceed with treatment with Mirena IUD if poss ible for her bleeding and the pain. The deep dyspareunia is also impairing her life and so plan was made to take care of that. Gonorrhea, chlamydia, and all STD labs were all negative. There was tenderness on the uterus on exam consistent with her findings. Description Of Procedure: After patient was consented, she was brought to the OR for the procedure, taken back to the OR, placed in a supine fashion on the operating table. General anesthesia was give n. Placed in a dorsal lithotomy position. Abdomen, vulva, vagina, and perineum were prepped and stephanie ped in a sterile fashion. A 1 cm infraumbilical incision was made with a scalpel using the open lapa roscopy technique. Fascia was incised. Peritoneum entered bluntly. S retractor was placed after ta gging the edges of the fascia with 0 Vicryl. David was introduced and fixed in place. Site of entr y was checked, unremarkable. Upper abdominal surface was completely unremarkable. The appendix was unremarkable. Endometriosis and a nodule in the right pararectal space, otherwise no other endometri otic lesions were seen on close examination of the anterior and posterior cul-de-sac, anterior and po sterior broad ligaments, and bilateral lateral ovalle and the anterior abdominal wall. Once all these are well visualized, I went on to tack this and place two 5 mm ports, suprapubic and left lower quad rant. Then, the bowel epiploicae were plicated with a 3-0 Vicryl suture and brought up through the l eft upper quadrant using a Jose-Nickie needle. This was for retraction. Then, once the pararect al space was well visualized, Malou was used to shredder picker. The peritoneum was dissected away from un derlying tissues and scored in a circumferential wide fashion. A medium EEA Sizer was introduced int o the rectum and pushed laterally to the left. The entire nodule was excised with scissors in push s pread technique. Bipolar cautery as needed for hemostasis. After the entire nodule was removed, a t horough irrigation and suction were performed. No evidence of any other endometriotic lesions was se en and the dissection appeared complete with normal tissues underlying in the surrounding areas of th e excision. Bilateral tubes were removed with the help of the EnSeal. Then, leiomyoma in the solar sales representative ior wall of the uterus was removed with the help of the EnSeal device and coagulated with the bipolar medium tip. Once there was excellent hemostasis, thorough irrigation and suction were performed and trocars removed under direct vision. Fascia closed with of 0 Vicryl in a [id number] fashion an d simple 0 Vicryl stitch all the midline at the umbilicus. The skin incisions were closed with the h elp of 4-0 Vicryl interrupted. Padgett bulb and VCare were removed. The patient tolerated the procedu re well. Instrument, needle, and sponge counts x3 were correct at the end of the case. The patient tolerated the procedure. The patient was extubated in the OR and taken to PACU in a stable condition . She will follow up with me in 1 week. Plan is to discuss the pathology with her, see the evolution of her symptoms, and possibly use of Yinka rabia if bleeding is the only symptom that is residual. JOSE/HOLDEN Voice ID: [id number] Report ID: [id number]
== END 2019-03-27 15:22 | disposition home or self-care (01) ==
LOC: OR 09:48
PROVIDERS: ATTEND Obstetrics & Gynecology
PROC: 0UT74ZZ Resection of Bilateral Fallopian Tubes, Percutaneous Endoscopic Approach (ICD-10-PCS; 2019-03-27)
PROC: 0UB94ZZ Excision of Uterus, Percutaneous Endoscopic Approach (ICD-10-PCS; 2019-03-27)
PROC: 0DBP4ZZ Excision of Rectum, Percutaneous Endoscopic Approach (ICD-10-PCS; principal; 2019-03-27 11:30)
DX: D25.2 Subserosal leiomyoma of uterus (principal); N92.1 Excessive and frequent menstruation with irregular cycle; N94.6 Dysmenorrhea, unspecified; N94.12 Deep dyspareunia; N80.8 Other endometriosis; K59.00 Constipation, unspecified
CPT/HCPCS: 36415; 81003; 81015; 84703; 85025; 86850; 86900; 86901; 88302; 88305; J0360; J1100; J1170; J2250; J2405; J2704; J2710; J3010

== ENCOUNTER 2020-09-07 07:56 | Day surgery (SDC) | payer BC ==
[2020-09-02 09:37] LABS: Urine Appearance CLEAR; Urine Bilirubin NEGATIVE (NEG); Urine Blood 2+ (NEG); Urine Color YELLOW; Urine Glucose NEGATIVE (NEG); Urine Protein NEGATIVE (NEG); Urine Urobilinogen 0.2 mg/dL (0.2-1.0); Urine pH 7.5 (5.0-7.0)
[2020-09-02 09:37] LABS: Absolute Lymphocytes (CBC) 2.3 K/uL (0.7-4.9); Basophils % 0.6 % (0-1.3); Lymphocytes % 35.8 % (15.3-44.8); MPV 8.1 fL (7.6-11.3); RBC Red Blood Cell Count 5.11 M/uL (3.86-4.86)
[2020-09-02 09:38] LABS: Urine Microscopic Reflex ORDER UMIC
[2020-09-02 09:58] LABS: Urine Bacteria <20 /HPF (<20); Urine Culture Reflex Order NOT NEEDED
[2020-09-07 08:22] LABS: Specific Gravity 1.025 (1.005-1.030)
[2020-09-07] MEDS ORDERED: Ringers Lactate 1,000 ML IV ONE ×2 (08:29→08:48)
[2020-09-07] MEDS ORDERED: CEFAZOLIN/SWI 2gm 2 GM/20 ML SYR ONE (08:29)
[2020-09-07] MEDS ORDERED: SCOPOLAMINE HYDROBROMIDE PATCH TD ONE (08:29)
[2020-09-07] MEDS ORDERED: BUPIVACAINE 0.25% PF 30 ML VIAL ONE (08:48)
[2020-09-07] MEDS ORDERED: propofoL 200 MG/20 ML VIAL IV ONE (09:02)
[2020-09-07] MEDS ORDERED: ROCURONIUM 50 MG/5 ML VIAL IV ONE ×2 (09:02→09:07)
[2020-09-07] MEDS ORDERED: KETOROLAC 30 MG/ML INJ ONE (09:02)
[2020-09-07] MEDS ORDERED: MIDAZOLAM HCL 2 MG/2 ML INJ ONE (09:02)
[2020-09-07] MEDS ORDERED: LIDOCAINE 2% MPF 5 ML VIAL ONE (09:02)
[2020-09-07] MEDS ORDERED: FENTANYL CITR 250 MCG/5 ML ONE ×2 (09:02→09:07)
[2020-09-07] MEDS ORDERED: ONDANSETRON 4 MG/2 ML VIAL ONE (09:04)
[2020-09-07] MEDS ORDERED: dexAMETHasone 10 MG/ML VIAL ONE (09:12)
[2020-09-07 12:33] VITALS: TEMP 97
[2020-09-07] MEDS ORDERED: HYDROCODONE/APAP 5/325 MG TAB PO ONE (13:10)
[2020-09-07] MEDS ORDERED: HYDROCODONE/APAP 5/325 MG TAB ONE (13:24)
[2020-09-07 13:43] VITALS: BP 137/77; O2SAT 98
--- NOTE | 2020-09-07 14:04 | OP ---
Date of Procedure: 09/07/2020 Surgeon: Terri Packer MD Remote Control Assembler: Juani Harden. Preoperative Diagnoses: Dysmenorrhea, pelvic pain, heavy bleeding controlled with IUD but after removal, irregular heavy bleeding recurred, history of endometriosis. Postoperative Diagnoses: Dysmenorrhea, pelvic pain, heavy bleeding controlled with IUD but after removal, irregular heavy bleeding recurred ,history of endometriosis. Procedure Performed: Total laparoscopic hysterectomy. Anesthesia: General endotracheal. Estimated Blood Loss: Minimal. Urine Output: 300. Specimens: Uterus. Complications: No complications. Drains: No drains. Condition: Stable. Findings: No endometriosis was seen as recurrent. Areas of excision from the past were visualized and no recurrence seen here. Minimal scarring. Ovaries completely unremarkable. Right broad ligament with a small area of venous dilatation like a varicosity. This was cauterized. Uterus was removed in a complete fashion. Indication: A 34-year-old who had severe dysmenorrhea, pelvic pain, dyspareunia, menorrhagia, where she had undergone surgery for endometriosis. Endometrial sampling a year and half ago. Then, she underwent endometriosis excision that was extensive and for control of bleeding, an IUD was placed postop. After 7 months with the Mirena without any bleeding. Started to have irregular bleeding, more pain, and extremely uncomfortable on a daily basis with the pain. So IUD was removed. Her bleeding recurred. However, pain has not resolved. So I offered the patient alternative of using a Depo injection, hormonal treatment ablation or hysterectomy. The patient wanted to proceed with a hysterectomy as she had extensive endometriosis history. Very reasonable to rule out any further endometriosis and remove the uterus that there was adenomyosis present and this is the contributing reason for her bleeding. The patient was consented and brought to the hospital. 2 g of Ancef were given. SCDs were placed. Preop consent was redone, at the bedside. Description Of Procedure: Then, taken back to the OR, placed in supine fashion on the operating table. General anesthesia was given. Placed in a dorsal lithotomy position. Abdomen, vulva, vagina, and perineum were prepped and draped in a sterile fashion. Padgett was placed to drain the bladder and attached for retrograde filling. Speculum was placed to expose the cervix. Anterior lip grasped with 2 Allis clamps and a large VCare introduced. The uterus was fixed in place. This area was then draped. 1 cm infraumbilical incision was made with scalpel using the open laparoscopy technique. Fascia was incised, tagged with 0 Vicryl sutures. Peritoneum was entered sharply and bluntly. S retractors were placed. David was introduced. Site of entry was checked. After adequate insufflation, unremarkable. Suprapubic area 10 mm port and left lower quadrant 5 mm ports were placed under direct vision. After visualizing the entire pelvic cavity, no evidence of any endometriosis. All the tissues were closely inspected. Ovaries were completely unremarkable. Right broad ligament area with a small varicosity. The hysterectomy was started. The utero-ovarian ligament was taken down with the help of the LigaSure. Then, the round ligament taken down. Broad ligament was taken down as well with the LigaSure. Then, the anterior peritoneum was opened up to create a bladder flap to the midline and then posterior lining of the broad ligament. Peritoneum was taken down to the left uterosacral. Then vessels were skeletonized, cauterized with the help of the LigaSure and then went on the opposite side. Utero-ovarian ligament and round ligament were all taken down together. Broad ligament was also taken down further to the level of the vessels. Then, the peritoneum was opened up anteriorly and posteriorly. Peritoneum was connected anteriorly through the bladder flap and posteriorly all the way to the left uterosacral and closing it and the midline joining both of the dissections together. Then broad ligament was skeletonized. Vessels were exposed. Bladder was dissected down at the anterior wall of the vagina. Then, a medial incision was made with the help of a monopolar hook blade to the vessels. Bipolar basket tip was used to cauterize. The LigaSure was used to cauterize and cut. Similar dissection was performed on the opposite side as well. Once the both vessels were taken down, cardinal ligaments were taken down. Then circumferential colpotomy with a monopolar hook blade was done and the specimen was retrieved through the vagina. Thorough irrigation and suction were performed. Excellent hemostasis was present and the closure of the vaginal cuff with simple 0 Vicryl suture at both ends and 3 [id number] in the center. There was a small area where the suture seemed to have gone through the superficial part of the detrusor muscle. Once I attempted to dissect this off, small amount of detrusor muscle injury. The bladder was filled to check to see if there was any leakage and there was none. So this superficial detrusor layers were closed with the help of 3-0 Vicryl in [id number] fashion, tied together without excessive tension. Excellent closure. Bladder was filled again and drained. No evidence of any leak. Then thorough irrigation and suction were performed. Suprapubic site below the fascia was bleeding, So bladder was filled to make sure it was not retroperitoneal bladder and it was not. Bladder was at least 3 to 5 cm below this incision. Then, the subcutaneous area was cauterized with the help of bipolar through the laparoscopic handle. Then, all the trocars were removed under direct vision. Appendix was normal. The gas was desufflated. Fascia and the skin were injected with lidocaine in lower both ports. 0 Vicryl was used to close the fascial incision in the suprapubic area with the 0 Vicryl stitch using Jose- Nickie needle. The bowel was retracted the sigmoid superiorly through the left upper quadrant. 3-0 Monocryl sutures were placed through the epiploicae for retraction through the left upper quadrant without any problems. This was released and no evidence of any injury. Gas was desufflated and all the trocars were removed. Instrument, needle, and sponge counts were correct at the end the case, injected the fascia and the skin with 0.25% Marcaine. Fascia at the umbilicus was closed with the help of the tagged sutures tied to each other, 4-0 Vicryl interrupted to close all the rest of the skin incisions. The retractor in the vagina and the Padgett were removed. Instrument, needle, and sponge counts were correct at the end of the case. The patient tolerated the procedure well. She had no evidence of electrical, mechanical, or thermal injury to the ureters before closing the laparoscopic part. She will be discharged home today after she eats, voids and has good pain control and is able to ambulate. All the surgical findings were discussed with her and she has 1 week postop appointment. Regular diet, to be advanced as tolerated. Ambulate as tolerated. All the restrictions were given in the form of a handout. Prescription to [facility] for [place]. She has a 1 week postop appointment. All the instructions to call have been given. SK/TERESAL Voice ID: [id number] Report ID: [id number] AYANA
== END 2020-09-07 13:50 | disposition home or self-care (01) ==
LOC: OR 07:56
PROVIDERS: ATTEND Obstetrics & Gynecology
PROC: 0UT94ZZ Resection of Uterus, Percutaneous Endoscopic Approach (ICD-10-PCS; principal; 2020-09-07 09:30)
DX: N80.4 Endometriosis of rectovaginal septum and vagina (principal); N92.6 Irregular menstruation, unspecified; N94.6 Dysmenorrhea, unspecified; E03.9 Hypothyroidism, unspecified; Z20.828 Contact with and (suspected) exposure to other viral communicable diseases
CPT/HCPCS: 85025; 36415; 86900; 86850; 81025; 86901; 88307; 58570; U0002; J2704; J2250; J3010 ×2; J1100; J0690; J7120 ×2; J2405; 81003; 81015